=== PATIENT | female | born 1975 | race American Indian/Alaskan Native ===

== ENCOUNTER 2016-04-24 14:30 | Outpatient (CLI) | payer OTHER ==
--- NOTE | 2016-04-26 09:06 | Mammography Report ---
BILATERAL DIGITAL SCREENING MAMMOGRAM with CAD: 04/24/16 14:30:00 CLINICAL: Baseline screening. FINDINGS: The breasts are heterogeneously dense, which may obscure small masses. No mass, architectural distortion or suspicious calcifications. IMPRESSION: No mammographic evidence of malignancy. BI-RADS CATEGORY: 1 - - Negative RECOMMENDATION: Routine mammographic screening in one year. COMMENT: Patient follow-up letters are generated by our [employer] application.
== END 2016-04-24 14:31 | disposition home or self-care (01) ==
LOC: SPVWC 14:30
PROVIDERS: ATTEND Surgery
DX: Z12.31 Encounter for screening mammogram for malignant neoplasm of breast (principal)
CPT/HCPCS: 77067; G0202

== ENCOUNTER 2016-06-20 19:08 | Emergency (ER) | payer OTHER ==
--- NOTE | 2016-06-20 23:46 | Emergency Department Report ---
HPI - General Chief Complaint: Sore Throat Time Seen by Provider: 06/20/16 22:07 - HPI HPI: 41-year-old female with history of right tonsillar abscess presents today complaining of right-sided sore throat 2 days. Denies difficulty breathing or swallowing. Denies drooling. He denies any sick contacts. Denies trying any medication for symptomatic relief. Denies fever, chills, nausea, vomiting, chest pain, shortness of breath, abdominal pain, cough or cold symptoms. ED Past Medical Hx - Past Medical History Hx Hypertension: Yes - Social History Smoking Status: Never Smoker Substance Use Type: None - Medications Home Medications: Home Medications Medication Instructions Recorded Confirmed Last Taken Type Cyclobenzaprine [Flexeril] 10 mg PO TID PRN #20 tablet 08/24/15 Unknown Rx Amoxicillin/K Clav Tab [Augmentin 1 tab PO Q12HR #20 tab 06/20/16 Unknown Rx 875 mg] Ibuprofen [Motrin 800 MG tab] 800 mg PO Q8HR PRN #30 tablet 06/20/16 Unknown Rx ED Review of Systems ROS: Stated complaint: THROAT PAIN Other details as noted in HPI Constitutional: denies: chills, fever, malaise Eyes: denies: eye pain ENT: throat pain. denies: ear pain, congestion Respiratory: denies: cough, shortness of breath, wheezing Cardiovascular: denies: chest pain, palpitations Endocrine: no symptoms reported Gastrointestinal: denies: abdominal pain, nausea, vomiting Skin: denies: rash Neurological: denies: headache, weakness Physical Exam - Physical Exam Vital Signs: Vital Signs 06/20/16 19:40 Temperature 98.4 F Pulse Rate 85 Respiratory 20 Rate Blood Pressure 144/98 O2 Sat by Pulse 100 Oximetry Physical Exam: GENERAL: The patient is well-developed and well-nourished. Patient is in NAD. HEAD: Normocephalic. Atraumatic. EYES: Extraocular motions are intact, PERRL. EARS: External auditory canals and tympanic membranes clear; hearing grossly intact. NOSE: Normal nasal mucosa with no nasal discharge. THROAT: Mildly erythematous, positive for right-sided tonsillomegaly. No tonsillar exudates noted. NECK: Positive for right-sided anterior cervical lymphadenopathy. CHEST/LUNGS: Clear to auscultation throughout. HEART/CARDIOVASCULAR: Regular rate and rhythm. No murmurs, rubs or gallops. ABDOMEN: Abdomen is soft, nontender. Bowel sounds normoactive. No guarding or rebound tenderness. EXTREMITIES: Peripheral pulses intact. Capillary refill less than 2 seconds. NEURO: Alert and oriented x 3. Normal gait. ED Course Vital Signs 06/20/16 19:40 Temperature 98.4 F Pulse Rate 85 Respiratory 20 Rate Blood Pressure 144/98 O2 Sat by Pulse 100 Oximetry ED Medical Decision Making - Lab Data Vital Signs 06/20/16 19:40 Temperature 98.4 F Pulse Rate 85 Respiratory 20 Rate Blood Pressure 144/98 O2 Sat by Pulse 100 Oximetry - Medical Decision Making 41-year-old female presents today with a sore throat 2 days. Positive for history of right-sided tonsillar abscess. Her rapid strep test is negative. A referral for ENT specialist has been provided. Patient is in no acute distress at this time. She will be discharged home and is encouraged to follow up with a primary care provider. She will be sent home on Augmentin and is encouraged to return to the emergency room for any worsening symptoms. Critical care attestation.: If time is entered above; I have spent that time in minutes in the direct care of this critically ill patient, excluding procedure time. ED Disposition Clinical Impression: Pharyngitis Qualifiers: Pharyngitis/tonsillitis etiology: unspecified etiology Qualified Code(s): J02.9 - Acute pharyngitis, unspecified Disposition: DISCHARGED TO HOME OR SELFCARE Is pt being admited?: No Does the pt Need Aspirin: No Condition: Stable Instructions: Peritonsillar Abscess (ED), Pharyngitis (ED) Additional Instructions: Follow-up with primary care provider and ENT specialist. Return to the emergency department if symptoms worsen. Prescriptions: Amoxicillin/K Clav Tab [Augmentin 875 mg] 1 tab PO Q12HR #20 tab Ibuprofen [Motrin 800 MG tab] 800 mg PO Q8HR PRN #30 tablet PRN Reason: Pain Referrals: KOBE SILVER MD [Primary Care Provider] - 3-5 Days ENT [facility] [Provider Group] - 3-5 Days ENT [facility] [Provider Group] - 3-5 Days Forms: Work/School Release Form(ED) Time of Disposition: 23:46
[2016-06-21 00:20] VITALS: BP 144/90
== END 2016-06-21 00:06 | disposition home or self-care (01) ==
LOC: ED 19:08
DX: J02.9 Acute pharyngitis, unspecified (principal); I10 Essential (primary) hypertension
CPT/HCPCS: 87116; 87430; 99282

== ENCOUNTER 2019-09-24 15:22 | Outpatient (CLI) | payer OTHER ==
--- NOTE | 2019-09-25 10:17 | Mammography Report ---
DIGITAL SCREENING MAMMOGRAM WITH CAD, 09/24/2019 INDICATION: Routine screening mammography. TECHNIQUE: Digital bilateral 2D mammography was obtained in the craniocaudal and mediolateral obliq ue projections. This examination was interpreted with the benefit of Computer-Aided Detection analysi s. COMPARISON: 04/24/2016 FINDINGS: Breast Density: The breasts are almost entirely fatty. There is no evidence of dominant mass, suspicious calcifications or architectural distortion in eithe r breast. No interval change. IMPRESSION: No evidence of malignancy. Follow up recommendation: Routine yearly BI-RADS Category 1: Negative. A "normal" or negative report should not discourage follow up or biopsy of a clinically significant f inding. A written summary of these findings will be mailed to the patient. The patient will be entered into a mammography reporting system which will generate a reminder letter for the patient's next appointmen t at the appropriate interval. The [employer] recommends yearly mammograms starting at age 40 and continuing as l fabio as a woman is in good health. Breast MRI is recommended for women with an approximate 20-25% or greater lifetime risk of breast cancer, including women with a strong family history of breast or ova jay cancer or who have been treated for Hodgkin's disease. Signer Name: Jia Ac MD Signed: 09/25/2019 10:13 AM Workstation Name: [email or web address]
== END 2019-09-24 15:23 | disposition home or self-care (01) ==
LOC: SPVWC 15:22
PROVIDERS: ATTEND Family Medicine
DX: Z12.31 Encounter for screening mammogram for malignant neoplasm of breast (principal); N64.89 Other specified disorders of breast
CPT/HCPCS: 77067

== ENCOUNTER 2021-06-22 13:19 | Outpatient (CLI) | payer OTHER ==
--- NOTE | 2021-06-24 09:17 | Mammography Report ---
DIGITAL SCREENING MAMMOGRAM WITH CAD, 06/22/2021 CLINICAL INFORMATION / INDICATION: Routine screening mammography. SCREENING MAMMO Z12.31 TECHNIQUE: Digital bilateral 2D mammography was obtained in the craniocaudal and mediolateral obliqu e projections. This examination was interpreted with the benefit of Computer-Aided Detection analysis . COMPARISON: 04/24/2016 and 09/24/2019. FINDINGS: Breast Density: The breasts are almost entirely fatty. No dominant mass, suspicious calcifications, or architectural distortion in either breast. IMPRESSION: No mammographic evidence of malignancy. Follow up recommendation: Routine yearly screening mammogram. BI-RADS Category 1: NEGATIVE A "normal" or negative report should not discourage follow up or biopsy of a clinically significant f inding. A written summary of these findings will be mailed to the patient. The patient will be entered into a mammography reporting system which will generate a reminder letter for the patient's next appointmen t at the appropriate interval. The [employer] recommends yearly mammograms starting at age 40 and continuing as l fabio as a woman is in good health. Breast MRI is recommended for women with an approximate 20-25% or greater lifetime risk of breast cancer, including women with a strong family history of breast or ova jay cancer or who have been treated for Hodgkin's disease. Signer Name: Jason Wright MD Signed: 06/24/2021 9:13 AM Workstation Name: [id number]
== END 2021-06-22 13:20 | disposition home or self-care (01) ==
LOC: SPVWC 13:19
PROVIDERS: ATTEND Family Medicine
DX: Z12.31 Encounter for screening mammogram for malignant neoplasm of breast (principal)
CPT/HCPCS: 77067